=== PATIENT | male | born 1995 | race Caucasian/White ===

== ENCOUNTER 2022-10-21 09:30 | Emergency (ER) | payer OTHER ==
[~2022-10-21] VITALS: Ht 162.6 cm; Wt 39.0 kg
[2022-10-21] MEDS ORDERED: KEPP500 PO (09:42)
[2022-10-21] MEDS ORDERED: CIPR-264 PO (10:38)
[2022-10-21 11:05] VITALS: BP 126/75
== END 2022-10-21 11:06 | disposition home or self-care (01) ==
LOC: ER 09:45
DX: Z46.6 Encounter for fitting and adjustment of urinary device (principal)
CPT/HCPCS: 99283